=== PATIENT | male | born 1970 | race Caucasian/White ===

== ENCOUNTER 2018-05-17 10:09 | Emergency (ER) | payer BC ==
[~2018-05-17] VITALS: Ht 172.7 cm; Wt 108.0 kg
[2018-05-17 10:13] VITALS: Ht 172.7 cm; Wt 108.0 kg
[2018-05-17 12:05] LABS: UA SPECIFIC GRAVITY >=1.030 (1.005-1.035); microscopic required? YES; urine erythrocyte 3+ (NEGATIVE)
[2018-05-17 13:05] VITALS: BP 138/78
== END 2018-05-17 13:05 | disposition home or self-care (01) ==
LOC: ED 10:09
PROVIDERS: Emergency Medicine
DX: N39.0 Urinary tract infection, site not specified (principal)
CPT/HCPCS: J1885